=== PATIENT | male | born 1990 | race American Indian/Alaskan Native ===

== ENCOUNTER 2016-05-03 00:05 | Emergency (ER) | payer OTHER ==
[2016-05-03 00:50] VITALS: BP 143/90
[2016-05-03] MEDS: TYLENOL PO ONE (00:58)
--- NOTE | 2016-05-03 02:55 | XRay Report ---
FINAL REPORT PROCEDURE: XR ELBOW 3 RT TECHNIQUE: LEFT elbow radiographs, including AP, lateral, and oblique views. CPT 78055 HISTORY: injury COMPARISON: No prior studies are available for comparison. FINDINGS: Fracture (s) and/or Dislocation(s): There is a nondisplaced fracture of the radial head. The humerus and ulna are intact. There is a small joint effusion. There is no joint dislocation.. Alignment: Normal . Joint space(s): Normal . Soft tissues: Normal . Bone mineralization: Normal . Foreign bodies: None . IMPRESSION: There is a nondisplaced fracture of the radial head. The humerus and ulna are intact. There is a small joint effusion. There is no joint dislocation..
--- NOTE | 2016-05-03 02:58 | XRay Report ---
FINAL REPORT PROCEDURE: XR FOREARM RT TECHNIQUE: LEFT forearm radiographs, AP and lateral views. CPT 48458 HISTORY: injury COMPARISON: No prior studies are available for comparison. FINDINGS: Fracture (s) and/or Dislocation(s): Nondisplaced fracture of the radial head. Remainder of the radius is unremarkable. The ulna is unremarkable.. Joint space(s): There is no joint dislocation. There is minimal joint effusion at the elbow.. Soft tissues: Normal . Bone mineralization: Normal . Foreign bodies: None . IMPRESSION: Nondisplaced fracture of the radial head. Remainder of the radius is unremarkable. The ulna is unremarkable.. There is no joint dislocation. There is minimal joint effusion at the elbow..
== END 2016-05-03 09:12 | disposition left against medical advice (07) ==
LOC: ED 00:05
DX: M79.641 Pain in right hand (principal); Z53.21 Procedure and treatment not carried out due to patient leaving prior to being seen by health care provider